=== PATIENT | male | born 1935 | race Caucasian/White ===

== ENCOUNTER 2017-08-17 20:19 | Emergency (ER) | payer OTHER ==
[~2017-08-17] VITALS: Ht 185.4 cm; Wt 63.0 kg
[~2017-08-17 20:19] MED LIST: OXYC-164 PO; QUET1TAB30 PO; RANI150T85 PO
[2017-08-17 20:22] VITALS: TEMP 37.4; Ht 185.4 cm; Wt 63.0 kg
[2017-08-17] MEDS ORDERED: ALBUT/IPRATROP 3MG/0.5MG NEB 3 ML VIAL INH STA (20:35)
[2017-08-17] MEDS ORDERED: SODIUM CHLORIDE 0.9% 1000ML 1,000 ML IV STA (20:35)
[2017-08-17] MEDS ORDERED: ALBUT/IPRATROP 3MG/0.5MG NEB 3 ML VIAL ONE (20:37)
[2017-08-17 20:45] VITALS: O2SAT 94
--- NOTE | 2017-08-17 21:04 | DIAGNOSTIC IMAGING REPORT ---
CHEST ONE VIEW PORTABLE HISTORY: 81 years-old Male EVALUATE RESPIRATORY DISTRESS.DYSPNEA acute respiratory distress COMPARISON: None available TECHNIQUE: Portable AP view of the chest FINDINGS: Cardiac silhouette is moderately enlarged. Tortuosity of the descending thoracic aorta with atherosclerosis. Mild background likely chronic interstitial coarsening. No pneumothorax, pleural effusion or overt pulmonary edema. Ill-defined increased density is noted within the left perihilar region. Degenerative changes are seen about the shoulders and spine. IMPRESSION: 1. Ill-defined increased density about the left perihilar region may be secondary to composite density from pulmonary vasculature or alternatively may reflect subtle airspace disease. 2. Cardiomegaly without overt pulmonary edema. The above report was generated using voice recognition software. It may contain grammatical, syntax or spelling errors. Electronically signed by: Yvan Franco M.D. 08/17/2017 9:02 PM Dictated Date/Time: 08/17/2017 8:59 PM
[2017-08-17 21:05] LABS: BASO % 0.2 %; BASO ABS # 0.02 K/uL (0-0.2); EOS % 0.8 %; EOS ABS # 0.09 K/uL (0-0.5); HEMOGLOBIN 13.6 g/dL (14.0-18.0); IG# 0.02 K/uL (0.00-0.02); LYMPH % 15.5 %; LYMPH ABS # 1.79 K/uL (1.2-3.4); MEAN CELL VOLUME 88.2 fL (80-100); MEAN CORPUSCULAR HEMOGLOBIN 30.8 pg (25-34); MEAN CORPUSCULAR HGB CONC 34.9 g/dl (32-36); MONO % 11.1 %; MONO ABS # 1.28 K/uL (0.11-0.59); NEUT % 72.2 %; NEUT ABS # 8.35 K/uL (1.4-6.5); PLATELET COUNT 215 K/uL (130-400); RED CELL DISTRIBUTION WIDTH CV 13.2 % (11.5-14.5); RED CELL DISTRIBUTION WIDTH SD 42.8 fL (36.4-46.3); WHITE BLOOD COUNT 11.55 K/uL (4.8-10.8)
[2017-08-17 21:15] LABS: INR 1.1 (0.9-1.1); PTT PATIENT 29.2 SECONDS (21.0-31.0)
[2017-08-17 21:23] LABS: ALBUMIN 3.5 gm/dl (3.4-5.0); CALCIUM 9.1 mg/dl (8.5-10.1); CREATININE 0.76 mg/dl (0.60-1.40); POTASSIUM 3.7 mmol/L (3.5-5.1)
[2017-08-17 21:26] LABS: TOTAL PROTEIN 7.9 gm/dl (6.4-8.2)
[2017-08-17] MEDS ORDERED: OPTIRAY 320 IV PRN (21:45)
[2017-08-17] MEDS ORDERED: OXYC-609 PO (21:50)
[2017-08-17] MEDS ORDERED: LNX125 PO (21:50)
--- NOTE | 2017-08-17 22:07 | DIAGNOSTIC IMAGING REPORT ---
(CHEST FOR PE) ANGIO WITH CT DOSE: 230.65 mGy.cm HISTORY: 81 years-old Male presents with acute atypical chest pain. Acute respiratory distress TECHNIQUE: Multiple CTA images of the chest were obtained after the intravenous administration of 93 ml Optiray 320. Coronal and sagittal MIPS were obtained from the axial data set and were submitted for review. A dose lowering technique was utilized adhering to the principles of ALARA. COMPARISON: Chest radiograph of same day. FINDINGS: CTA: A least moderate multichamber cardiac enlargement, notably the right ventricle. Coronary arterial disease. No thoracic aortic aneurysm or dissection identified. Imaged great vessels appear patent. Pulmonary arterial tree is well-opacified, however the distal lobar, segmental and subsegmental branches are not well seen secondary to respiratory motion. No focal filling defects identified to suggest pulmonary thromboembolic disease. CT CHEST: Thyroid is homogeneous. Calcified subcarinal lymph nodes suggest prior granulomatous disease. Scattered calcified granulomas of the lungs are also noted. Evaluation of the lungs is limited secondary to respiratory motion. Mild upper lobe predominant emphysema without pneumothorax or pleural effusion. Subsegmental bibasilar opacities suggest atelectasis. Moderate bilateral multilobar bronchial wall thickening. Mild right apical pleural parenchymal scarring. No suspicious pulmonary nodules or masses. No airspace opacities identified within the left midlung to correlate with the finding seen on comparison chest radiograph. Tracheostomy cannula noted below the level the clavicular heads. Calcifications in the region of the right adrenal gland suggests prior hemorrhage or infection. No acute process of the imaged upper abdomen. Soft tissues are unremarkable. Degenerative changes are seen within the shoulders and spine. IMPRESSION: 1. No acute aortic pathology or evidence of pulmonary thromboembolic disease. Suboptimal evaluation of the pulmonary arterial tree secondary to respiratory motion. 2. Cardiomegaly without evidence of pulmonary edema or pleural effusion. 3. Mild emphysema with bilateral bronchial wall thickening compatible with bronchitis. 4. Prior granulomatous disease. 5. Subsegmental bibasilar opacities suggest atelectasis. No definite evidence of pneumonia. The above report was generated using voice recognition software. It may contain grammatical, syntax or spelling errors. Electronically signed by: Yvan Franco M.D. 08/17/2017 10:06 PM Dictated Date/Time: 08/17/2017 9:58 PM
[2017-08-17] MEDS ORDERED: LEVOFLOXACIN 250 MG TAB PO STA (22:31)
--- NOTE | 2017-08-17 22:59 | EMERGENCY ROOM VISIT NOTE ---
History Report prepared by [place]: Jahaira Byrnes Under the Supervision of: Dr. Milton Simon D.O. First contact with patient: 20:27 Chief Complaint: CHEST PAIN Stated Complaint: CHEST PAIN, SOB History of Present Illness The patient is a 81 year old male who presents to the Emergency Room with complaints of intermittent chest pain starting 0930 this morning. The pain is in the middle of his chest and does not radiate elsewhere. The chest pain improves with resting and worsens with activity. The pain seems to come in waves. He has never had this before. He is currently not having any pain. He is also having SOB. He uses a hose to clear out his throat every 3 hours. He has been getting more out than usual. He reports rhinorrhea and sore throat. He has had some intermittent neck stiffness for the past 3 days which has overall improved. He denies any cough, fever, abdominal pain, or pain/swelling in the legs. He has a history of throat cancer. He did not receive radiation or chemo. He smokes a pack every 3 weeks. He denies any history of blood clots. He does not use breathing treatments at home. Source of History: patient, family Onset: 929 Position: chest (mid) Timing: intermittent Modifying Factors (Relieving): rest Associated Symptoms: + neck pain, + SOB, No fevers, No cough, No abdominal pain Note: Pt reports rhinorrhea. Review of Systems See HPI for pertinent positives & negatives. A total of 10 systems reviewed and were otherwise negative. Past Medical & Surgical Medical Problems: (1) No Known Active Medical Problems (2) Throat cancer Family History Diabetes mellitus Heart disease Social History Smoking Status: Current Some Day Smoker Alcohol Use: other (rarely) Marital Status: single Housing Status: lives alone Occupation Status: retired Current/Historical Medications Scheduled Digoxin (Digoxin), 0.125 MG PO QAM Levofloxacin (Levaquin), 750 MG PO DAILY Oxycodone HCl (Oxycodone HCl), 5 MG PO Q6H Physical Exam Vital Signs Date Time Temp Pulse Resp B/P (MAP) Pulse Ox O2 Delivery O2 Flow Rate FiO2 08/17/17 23:10 100 17 159/109 94 08/17/17 22:41 26 93 08/17/17 22:39 127 08/17/17 22:36 107 19 93 Room Air 08/17/17 21:31 117/102 4/16/18 21:21 19 96 Room Air 08/17/17 21:06 92 25 100 08/17/17 21:01 91 25 168/100 100 Nebulizer Trach Collar 08/17/17 20:49 91 12 94 Room Air 08/17/17 20:45 Room Air 08/17/17 20:45 94 Room Air 08/17/17 20:37 174/106 08/17/17 20:22 37.4 103 22 162/105 94 Room Air Physical Exam GENERAL: Patient is awake, alert, and in no acute distress. Patient is resting comfortably and showing no signs of anxiety EYES: The conjunctivae are clear. The pupils are round and reactive. EARS, NOSE, MOUTH AND THROAT: The nose is without any evidence of any deformity. Mucous membranes are moist tongue is midline NECK: The neck is nontender and supple. RESPIRATORY: Lung sounds diminished throughout with scattered expiratory wheeze in all valderrama. Mild tachypnea and conversational dyspnea noted. CARDIOVASCULAR: Tachycardic and irregular, no definite murmur noted. GASTROINTESTINAL: The abdomen is soft. Bowel sounds are present in all quadrants. Abdomen is nontender MUSCULOSKELETAL/EXTREMITIES: There is no evidence of gross deformity full range of motion is noted in the hips and shoulders SKIN: There is trace pedal edema bilaterally. No calf tenderness. NEUROLOGIC: Patient is awake alert and oriented x3 Medical Decision & Procedures ER Provider Diagnostic Interpretation: X-ray results as stated below per interpretation by me and the radiologist. Radiology results as stated below per my review and radiologist interpretation: CHEST ONE VIEW PORTABLE HISTORY: 81 years-old Male EVALUATE RESPIRATORY DISTRESS.DYSPNEA acute respiratory distress COMPARISON: None available TECHNIQUE: Portable AP view of the chest FINDINGS: Cardiac silhouette is moderately enlarged. Tortuosity of the descending thoracic aorta with atherosclerosis. Mild background likely chronic interstitial coarsening. No pneumothorax, pleural effusion or overt pulmonary edema. Ill-defined increased density is noted within the left perihilar region. Degenerative changes are seen about the shoulders and spine. IMPRESSION: 1. Ill-defined increased density about the left perihilar region may be secondary to composite density from pulmonary vasculature or alternatively may reflect subtle airspace disease. 2. Cardiomegaly without overt pulmonary edema. The above report was generated using voice recognition software. It may contain grammatical, syntax or spelling errors. Electronically signed by: Yvan Franco M.D. 08/17/2017 9:02 PM Dictated Date/Time: 08/17/2017 8:59 PM (CHEST FOR PE) ANGIO WITH CT DOSE: 230.65 mGy.cm HISTORY: 81 years-old Male presents with acute atypical chest pain. Acute respiratory distress TECHNIQUE: Multiple CTA images of the chest were obtained after the intravenous administration of 93 ml Optiray 320. Coronal and sagittal MIPS were obtained from the axial data set and were submitted for review. A dose lowering technique was utilized adhering to the principles of ALARA. COMPARISON: Chest radiograph of same day. FINDINGS: CTA: A least moderate multichamber cardiac enlargement, notably the right ventricle. Coronary arterial disease. No thoracic aortic aneurysm or dissection identified. Imaged great vessels appear patent. Pulmonary arterial tree is well-opacified, however the distal lobar, segmental and subsegmental branches are not well seen secondary to respiratory motion. No focal filling defects identified to suggest pulmonary thromboembolic disease. CT CHEST: Thyroid is homogeneous. Calcified subcarinal lymph nodes suggest prior granulomatous disease. Scattered calcified granulomas of the lungs are also noted. Evaluation of the lungs is limited secondary to respiratory motion. Mild upper lobe predominant emphysema without pneumothorax or pleural effusion. Subsegmental bibasilar opacities suggest atelectasis. Moderate bilateral multilobar bronchial wall thickening. Mild right apical pleural parenchymal scarring. No suspicious pulmonary nodules or masses. No airspace opacities identified within the left midlung to correlate with the finding seen on comparison chest radiograph. Tracheostomy cannula noted below the level the clavicular heads. Calcifications in the region of the right adrenal gland suggests prior hemorrhage or infection. No acute process of the imaged upper abdomen. Soft tissues are unremarkable. Degenerative changes are seen within the shoulders and spine. IMPRESSION: 1. No acute aortic pathology or evidence of pulmonary thromboembolic disease. Suboptimal evaluation of the pulmonary arterial tree secondary to respiratory motion. 2. Cardiomegaly without evidence of pulmonary edema or pleural effusion. 3. Mild emphysema with bilateral bronchial wall thickening compatible with bronchitis. 4. Prior granulomatous disease. 5. Subsegmental bibasilar opacities suggest atelectasis. No definite evidence of pneumonia. The above report was generated using voice recognition software. It may contain grammatical, syntax or spelling errors. Electronically signed by: Yvan Franco M.D. 08/17/2017 10:06 PM Dictated Date/Time: 08/17/2017 9:58 PM Laboratory Results 08/17/17 20:45 Red Blood Count 4.42, Mean Corpuscular Volume 88.2, Mean Corpuscular Hemoglobin 30.8, Mean Corpuscular Hemoglobin Concent 34.9, Mean Platelet Volume 12.0, Neutrophils (%) (Auto) 72.2, Lymphocytes (%) (Auto) 15.5, Monocytes (%) (Auto) 11.1, Eosinophils (%) (Auto) 0.8, Basophils (%) (Auto) 0.2, Neutrophils # (Auto ) 8.35, Lymphocytes # (Auto) 1.79, Monocytes # (Auto) 1.28, Eosinophils # (Auto ) 0.09, Basophils # (Auto) 0.02 08/17/17 20:45 Test 08/17/17 20:45 08/17/17 20:55 White Blood Count 11.55 K/uL (4.8-10.8) Red Blood Count 4.42 M/uL (4.7-6.1) Hemoglobin 13.6 g/dL (14.0-18.0) Hematocrit 39.0 % (42-52) Mean Corpuscular Volume 88.2 fL (80-100) Mean Corpuscular Hemoglobin 30.8 pg (25-34) Mean Corpuscular Hemoglobin Concent 34.9 g/dl (32-36) Platelet Count 215 K/uL (130-400) Mean Platelet Volume 12.0 fL (7.4-10.4) Neutrophils (%) (Auto) 72.2 % Lymphocytes (%) (Auto) 15.5 % Monocytes (%) (Auto) 11.1 % Eosinophils (%) (Auto) 0.8 % Basophils (%) (Auto) 0.2 % Neutrophils # (Auto) 8.35 K/uL (1.4-6.5) Lymphocytes # (Auto) 1.79 K/uL (1.2-3.4) Monocytes # (Auto) 1.28 K/uL (0.11-0.59) Eosinophils # (Auto) 0.09 K/uL (0-0.5) Basophils # (Auto) 0.02 K/uL (0-0.2) RDW Standard Deviation 42.8 fL (36.4-46.3) RDW Coefficient of Variation 13.2 % (11.5-14.5) Immature Granulocyte % (Auto) 0.2 % Immature Granulocyte # (Auto) 0.02 K/uL (0.00-0.02) Prothrombin Time 11.5 SECONDS (9.0-12.0) Prothromb Time International Ratio 1.1 (0.9-1.1) Activated Partial Thromboplast Time 29.2 SECONDS (21.0-31.0) Partial Thromboplastin Ratio 1.1 Anion Gap 8.0 mmol/L (3-11) Est Creatinine Clear Calc Drug Dose 70.2 ml/min Estimated GFR () 100.6 Estimated GFR (Non- 86.8 BUN/Creatinine Ratio 19.0 (10-20) Calcium Level 9.1 mg/dl (8.5-10.1) Magnesium Level 2.1 mg/dl (1.8-2.4) Total Bilirubin 1.4 mg/dl (0.2-1) Aspartate Amino Transf (AST/SGOT) 21 U/L (15-37) Alanine Aminotransferase (ALT/SGPT) 15 U/L (12-78) Alkaline Phosphatase 92 U/L (45-117) Total Protein 7.9 gm/dl (6.4-8.2) Albumin 3.5 gm/dl (3.4-5.0) Globulin 4.4 gm/dl (2.5-4.0) Albumin/Globulin Ratio 0.8 (0.9-2) Digoxin Level 0.5 ng/ml (0.8-2.0) Bedside D-Dimer > 450 ng/mlFEU (0-450) Bedside Troponin I < 0.030 ng/ml (0-0.045) Laboratory results per my review. Medications Administered Medications (Trade) Dose Ordered Sig/Rafael Route Start Time Stop Time Status Last Admin Dose Admin Sodium Chloride 1,000 ml @ 999 mls/hr Q1H1M STAT IV 08/17/17 20:35 08/17/17 21:35 DC 08/17/17 20:58 999 MLS/HR Albuterol/ Ipratropium (Duoneb) 3 ml NOW STAT INH 08/17/17 20:35 08/17/17 20:37 DC 08/17/17 20:40 3 ML Levofloxacin (Levaquin Tab) 750 mg NOW STAT PO 08/17/17 22:31 08/17/17 22:32 DC 08/17/17 22:41 750 MG ECG Per My Interpretation Indication: chest pain Rate (beats per minute): 97 Rhythm: atrial fibrillation Findings: other (no PVC, no acute ST segment abnormality) Comparison ECG Date: no prior available ED Course 2028: The patient was evaluated in room C11B. A complete history and physical examination were performed. 2034: Duoneb 3 ml INH, NSS 1,000 ml @ 999 mls/hr IV. 2229: I reevaluated the patient. I updated him on the results. 2230: Levaquin Tab 750 mg PO. Medical Decision Prior records/ancillary studies reviewed. Triage Nursing notes reviewed. Additional history obtained from family. The patient's history was concerning for chest pain. Differential diagnosis: Etiologies such as cardiac ischemia, aortic dissection, pulmonary embolism, pneumonia, pneumothorax, musculoskeletal, infections, pericarditis, myocarditis , esophageal rupture, gastrointestinal, as well as others were entertained. The patient is a 81-year-old male who presented to the emergency department for chest discomfort. He is also noticed a cough and increased sputum production. The patient has a tracheostomy for head neck cancer. The patient had atrial fibrillation noted on EKG this is not new for him. I discussed patient's laboratory and radiographic studies with him. I also discussed the limitations of the emergency department workup for chest pain with him. At this time I feel he can follow-up with his primary care physician for further evaluation. He was encouraged to continue all medications as prescribed and was started on antibiotic. I also encouraged him to return to the emergency department immediately if symptoms change worsen or the need arises. Medication Reconcilliation Current Medication List: was personally reviewed by me Blood Pressure Screening Patient's blood pressure: Elevated blood pressure Impression Primary Impression: Chest pain Additional Impressions: Bronchitis Rapid atrial fibrillation Scribe Attestation The scribe's documentation has been prepared under my direction and personally reviewed by me in its entirety. I confirm that the note above accurately reflects all work, treatment, procedures, and medical decision making performed by me. Departure Information Dispostion Home / Self-Care Prescriptions Levofloxacin (Levaquin) 750 Mg Tab 750 MG PO DAILY, #5 TAB Prov: Milton Simon, DO 08/17/17 Referrals No Doctor, Assigned (PCP) Forms Call Back Authorization, HOME CARE DOCUMENTATION FORM, IMPORTANT VISIT INFORMATION Patient Instructions Bronchitis Acute, ED Chest Pain Atypical Unkn Cause, [employer] Additional Instructions Continue all medications as prescribed. Rest and avoid any strenuous activity. Follow-up with your primary care physician tomorrow for further evaluation. Try to avoid any further tobacco use. Problem Qualifiers Primary Impression: Chest pain Chest pain type: unspecified Qualified Codes: R07.9 - Chest pain, unspecified
[2017-08-17] MEDS ORDERED: LEVO1TAB35 PO (23:02)
[2017-08-17] MEDS ORDERED: VNTHFA/IN INH (23:02)
[2017-08-17 23:10] VITALS: BP 159/109; PULSE 100; O2SAT 94
== END 2017-08-17 23:23 | disposition home or self-care (01) ==
LOC: C.EDB 20:20 → C.EDC 23:23
DX: J40 Bronchitis, not specified as acute or chronic (principal); I48.91 Unspecified atrial fibrillation; C14.0 Malignant neoplasm of pharynx, unspecified; F17.210 Nicotine dependence, cigarettes, uncomplicated; Z83.3 Family history of diabetes mellitus; Z79.899 Other long term (current) drug therapy; Z93.0 Tracheostomy status